=== PATIENT | male | born 1945 | race Caucasian/White ===

== ENCOUNTER 2017-02-08 01:57 | Emergency (ER) | payer MEDICARE ==
--- NOTE | 2017-02-08 02:10 | ER Document Report ---
ED Respiratory Problem - General Chief Complaint: Shortness Of Breath Stated Complaint: DIFFICULTY BREATHING Time Seen by Provider: 02/08/17 02:03 Notes: The patient is a 71-year-old male, past medical history ESRD (MWF, due this morning), A fib, presents by EMS with several hours of increased shortness of breath. He is coughing up white sputum and says this feels similar to when he had pneumonia. EMS arrived and his oxygen was 75% on room air. He was placed on CPAP and nitro paste was placed by EMS with improvement of his oxygenation. Patient denies chest pain, leg swelling, nausea, vomiting, back pain, fevers, headache, numbness or tingling. TRAVEL OUTSIDE OF THE [place] IN LAST 30 DAYS: No - Related Data Allergies/Adverse Reactions: warfarin Allergy (Verified 02/08/17 04:07) Past Medical History - General Information source: Patient - Social History Smoking Status: Unknown if Ever Smoked Family History: Reviewed & Not Pertinent - Past Medical History Cardiac Medical History: Reports: Hx Atrial Fibrillation, Hx Hypercholesterolemia, Hx Hypertension Denies: Hx Heart Attack Pulmonary Medical History: Denies: Hx Asthma Neurological Medical History: Denies: Hx Cerebrovascular Accident, Hx Seizures Renal/ Medical History: Reports: Hx End Stage Renal Disease, Hx Hemodialysis GI Medical History: Reports: Hx Gastroesophageal Reflux Disease. Denies: Hx Hepatitis, Hx Hiatal Hernia, Hx Ulcer Skin Medical History: Reports Hx Cellulitis - catheter site. Infectious Medical History: Denies: Hx Hepatitis Past Surgical History: Reports: Hx Abdominal Surgery - AAA repair, Hx Kidney ( Renal Surgery) - home dialysis 4 x week every other day, Hx Testicular Surgery, Hx Vascular Surgery - Arteriovenous shunt surgery. Denies: Hx Open Heart Surgery, Hx Pacemaker - Immunizations Hx Diphtheria, Pertussis, Tetanus Vaccination: Yes Hx Pneumococcal Vaccination: 02/08/09 Review of Systems - Review of Systems Notes: REVIEW OF SYSTEMS: CONSTITUTIONAL: -fevers, -chills EENT: -eye pain, -difficulty swallowing, -nasal congestion CARDIOVASCULAR: -chest pain, -syncope. RESPIRATORY: +cough, +SOB GASTROINTESTINAL: -abdominal pain, -nausea, -vomiting, -diarrhea GENITOURINARY: -dysuria, -hematuria MUSCULOSKELETAL: -back pain, -neck pain SKIN: -rash or skin lesions. HEMATOLOGIC: -easy bruising or bleeding. LYMPHATIC: -swollen, enlarged glands. NEUROLOGICAL: -altered mental status or loss of consciousness, -headache, - neurologic symptoms PSYCHIATRIC: -anxiety, -depression. ALL OTHER SYSTEMS REVIEWED AND NEGATIVE. Physical Exam - Vital signs Vitals: Temp Resp BP 97.8 F 25 H 148/53 H 02/08/17 02:02 02/08/17 02:02 02/08/17 02:02 - Notes Notes: PHYSICAL EXAMINATION: GENERAL: Mild respiratory distress. HEAD: Atraumatic, normocephalic. EYES: Pupils equal round and reactive to light, extraocular movements intact, sclera anicteric, conjunctiva are normal. ENT: nares patent, oropharynx clear without exudates. Moist mucous membranes. NECK: Normal range of motion, supple without lymphadenopathy LUNGS: Crackles and rales in B/L lung [place]. HEART: Tachycardia, regular rhythm. ABDOMEN: Soft, nontender, normoactive bowel sounds. No guarding, no rebound. No masses appreciated. EXTREMITIES: 1+ pitting edema in B/L legs. LUE dialysis fistula. Normal range of motion, no pitting or edema. No cyanosis. NEUROLOGICAL: Cranial nerves grossly intact. Normal speech, normal gait. Normal sensory and motor exams. PSYCH: Normal mood, normal affect. SKIN: Dry skin. Course - Re-evaluation Re-evalutation: Patient seen immediately on arrival and switched from CPAP to BiPAP due to hypoxia on room air to 75% at home. Patient's respiratory status and oxygenation greatly improved with BiPAP. His chest x-ray shows a right lower lobe opacity, which may be loculated pleural effusion, infiltrate or pleural density. CT is recommended for further delineation. Broad-spectrum antibiotics started due to possibility of a pneumonia with productive cough, opacity on CXR and hypoxia. However, pneumonia is less likely without a fever or leukocytosis at this time. Patient requires admission for further evaluation and monitoring of his hypoxia and respiratory status. He is due for dialysis this morning, however no entry level staff accountant or dialysis capacity at [facility] until 02/15/2017 (confirmed with diesel crane operator). Potassium is 5.7, but no hyperkalemic EKG changes. Patient said that he has been seen at [facility] multiple times and is requesting transfer. 02/08/17 03:38 Placed call to [facility] and awaiting callback. 02/08/17 03:[address] Babak Arrieta and he has accepted patient. 02/08/17 05:34 Transport in ED. Patient reevaluated and resting comfortably on BiPAP. He is stable for transport. - Vital Signs Vital signs: Temp Pulse Resp BP Pulse Ox 96.9 F L 21 H 135/60 H 100 02/08/17 05:31 02/08/17 05:31 02/08/17 05:31 02/08/17 05:31 - Laboratory Result Diagrams: 02/08/17 02:38 02/08/17 02:38 Laboratory results interpreted by me: 02/08/17 02/08/17 02/08/17 02:38 02:38 02:38 RBC 2.90 L Hgb 10.0 L Hct 31.2 L MCV 108 H MCH 34.6 H RDW 18.0 H Seg Neutrophils % 85.8 H Lymphocytes % 6.2 L Absolute Lymphocytes 0.4 L VBG pH VBG pCO2 Potassium 5.7 H BUN 82 H Creatinine 7.65 H Est GFR ( Amer) 9 L Est GFR (Non-Af Amer) 7 L Glucose 129 H Direct Bilirubin 0.6 H Alkaline Phosphatase 550 H NT-Pro-B Natriuret Pep 60021 H Total Protein 6.1 L Albumin 3.2 L 02/08/17 02:38 RBC Hgb Hct MCV MCH RDW Seg Neutrophils % Lymphocytes % Absolute Lymphocytes VBG pH 7.19 L* VBG pCO2 78.4 H* Potassium BUN Creatinine Est GFR ( Amer) Est GFR (Non-Af Amer) Glucose Direct Bilirubin Alkaline Phosphatase NT-Pro-B Natriuret Pep Total Protein Albumin - Diagnostic Test Radiology reviewed: Image reviewed, Reports reviewed Radiology results interpreted by me: CXR: Lobulated right costophrenic angle pleural-based opacity. This may represent a loculated pleural effusion with right basilar consolidation. Correlation with follow-up CT of the chest recommended as pleural-based mass could produce a similar appearance. - EKG Interpretation by Me EKG shows normal: Sinus rhythm, [place], Intervals Rate: Tachycardia Additional EKG results interpreted by me: No STEMI Critical Care Note - Critical Care Note Total time excluding time spent on procedures (mins): 35 Discharge - Discharge Clinical Impression: Pleural effusion, Possible pneumonia Respiratory failure with hypoxia and hypercapnia Qualifiers: Chronicity: acute Qualified Code(s): J96.01 - Acute respiratory failure with hypoxia Condition: Stable Disposition: [facility] Referrals: IVORY KNUTSON PA-C [Primary Care Provider] - Follow up as needed
[2017-02-08 03:06] LABS: ABSOLUTE EOSINOPHILS # (AUTO) 0.1 10^3/uL (0.0-0.6); ABSOLUTE LYMPHOCYTES (AUTO) 0.4 10^3/uL (0.5-4.7); ABSOLUTE MONOCYTES (AUTO) 0.4 10^3/uL (0.1-1.4); BASOPHILS % (AUTO) 0.6 % (0-2); EOSINOPHILS % (AUTO) 1.1 % (0-6); HEMATOCRIT 31.2 % (37.9-51.0); LYMPHOCYTES % (AUTO) 6.2 % (13-45); MEAN CORPUSCULAR HEMOGLOBIN 34.6 pg (27.0-33.4); MEAN CORPUSCULAR HGB CONC 32.2 g/dL (32.0-36.0); MEAN CORPUSCULAR VOLUME 108 fl (80-97); MONOCYTES % (AUTO) 6.3 % (3-13); PLATELET COUNT 176 10^3/uL (150-450); SEGMENTED NEUTROPHILS % (AUTO) 85.8 % (42-78); TOTAL CELLS COUNTED % (AUTO) 100 %
[2017-02-08 03:07] LABS: INTERNATIONAL RATION (INR) 1.09; PROTHROMBIN TIME 14.9 SEC (11.4-15.4)
[2017-02-08 03:08] LABS: PARTIAL THROMBOPLASTIN TIME 34.3 SEC (23.5-35.8)
[2017-02-08 03:16] LABS: ALANINE AMINOTRANSFERASE 72 U/L (21-72); ALBUMIN 3.2 g/dL (3.5-5.0); ALKALINE PHOSPHATASE 550 U/L (38-126); ANION GAP 14 (5-19); ASPARTATE AMINO TRANSFERASE 49 U/L (17-59); BILIRUBIN,DIRECT 0.6 mg/dL (0.0-0.4); BILIRUBIN,TOTAL 0.6 mg/dL (0.2-1.3); BLOOD UREA NITROGEN 82 mg/dL (7-20); CALCIUM 8.7 mg/dL (8.4-10.2); CARBON DIOXIDE 28 mmol/L (22-30); CHLORIDE 101 mmol/L (98-107); CREATINE KINASE 55 U/L (55-170); GLUCOSE 129 mg/dL (75-110); LIPASE 227.9 U/L (23-300); POTASSIUM 5.7 mmol/L (3.6-5.0); SODIUM 143.1 mmol/L (137-145); TOTAL PROTEIN 6.1 g/dL (6.3-8.2)
--- NOTE | 2017-02-08 03:21 | RADIOLOGY REPORT (SQ) ---
EXAM DESCRIPTION: CHEST SINGLE VIEW CLINICAL HISTORY: SOB COMPARISON: 09/23/2015 FINDINGS: Single frontal view of the chest. Cardia megaly. Atherosclerotic calcification of the aortic arch. Leads overlie the chest. Lobulated right basilar possibly pleural-based opacity with airspace opacities in the right lung base. No pneumothorax. No displaced rib fractures identified. Upper abdominal soft tissues are unremarkable. IMPRESSION: 1. Lobulated right costophrenic angle pleural-based opacity. This may represent a loculated pleural effusion with right basilar consolidation. Correlation with follow-up CT of the chest recommended as pleural-based mass could produce a similar appearance.
[2017-02-08 03:26] LABS: TROPONIN I 0.025 ng/mL
[2017-02-08] MEDS ORDERED: AZITHROMYCIN INJ 500 MG VIAL IV ONE (03:31)
[2017-02-08] MEDS ORDERED: CEFTRIAXONE 1 GM/D5W RTU 1 GM/50 ML RTUPB IV ONE (03:31)
[2017-02-08 03:34] LABS: VENOUS BLOOD BASE EXCESS -0.6 mmol/L; VENOUS BLOOD HCO3 29.3 mmol/L (20-32)
[2017-02-08 03:36] LABS: VENOUS BLOOD PCO2 78.4 mmHg (35-63)
[2017-02-08 03:37] LABS: VENOUS BLOOD PH 7.19 (7.30-7.42)
[2017-02-08] MEDS ORDERED: VANCOMYCIN HCL INJ 1000 MG VIAL IV ONE (03:37)
[2017-02-08] MEDS ORDERED: PIPERACILLIN/TAZOBACTAM 3.375 GM VIAL IV ONE (03:37)
[2017-02-08 05:34] VITALS: BP 135/60
--- NOTE | 2017-02-09 09:25 | EKG REPORT ---
SEVERITY:- ABNORMAL ECG - SINUS TACHYCARDIA PROBABLE LEFT ATRIAL ABNORMALITY NONSPECIFIC INTRAVENTRICULAR CONDUCTION DELAY LOW VOLTAGE IN FRONTAL LEADS BORDERLINE R WAVE PROGRESSION, ANTERIOR LEADS MINIMAL ST DEPRESSION, ANTEROLATERAL LEADS : Confirmed by: Yan Turcios 09-Feb-2017 09:23:17
== END 2017-02-08 05:35 | disposition short-term general hospital (02) ==
LOC: ER 01:57
DX: J96.01 Acute respiratory failure with hypoxia (principal); I12.0 Hypertensive chronic kidney disease with stage 5 chronic kidney disease or end stage renal disease; N18.6 End stage renal disease; Z99.2 Dependence on renal dialysis; J90 Pleural effusion, not elsewhere classified; Z87.01 Personal history of pneumonia (recurrent); Z88.8 Allergy status to other drugs, medicaments and biological substances
CPT/HCPCS: 93005; 99291; 96365; 96368; 36415; 87040; 82550; 83690; 85025; 85610; 85730; 80053; 84484; 82803; 83605; 83880; 71045; 93010; 94660; J3370; J2543

== ENCOUNTER 2017-03-06 09:23 | Emergency (ER) | payer MEDICARE ==
[2017-03-06] MEDS ORDERED: DIGOXIN INJ 0.5 MG/2 ML AMPULE IV ONE ×3 (09:26→12:23)
[2017-03-06] MEDS ORDERED: PHENYLEPHRINE HCL INJ/PF 10 MG/1 ML SDV ONE ×3 (09:29→13:41)
--- NOTE | 2017-03-06 09:43 | ER Document Report ---
ED General - General Stated Complaint: SHORTNESS OF BREATH Time Seen by Provider: 03/06/17 09:26 Notes: Patient brought in by EMS with respiratory distress and low blood pressure. Called to EMS this morning was for difficulty breathing, shortness of breath, chest tightness. EMS describes finding the patient in atrial fibrillation with a heart rate of about 180 and a blood pressure of 60/40. EMS has started a bag of saline on the patient via interosseous access in his leg. He has a history of atrial fibrillation. Patient received Cardizem 20 mg bolus by EMS and was attempted cardioversion at 50 J and then 100 J, but no change in the patient's rhythm. Patient says is no longer having chest pain or tightness, but still feels some shortness of breath. Patient is a dialysis patient, Wednesday, Wednesday, and Wednesday. Further information obtained from sister when she arrived. She says that he was hospitalized in [place] about a month ago with pneumonia and CHF fluid overload. During his hospitalization, he had dialysis. He missed dialysis this past Wednesday because his graft had clotted and he was sent to [place] for a procedure to open the graft back up. He did get his dialysis Wednesday and Wednesday, yesterday. Spoke with [facility] physician, Dr. Colon, who accepted the patient for transfer. TRAVEL OUTSIDE OF THE [place] IN LAST 30 DAYS: No - Related Data Allergies/Adverse Reactions: warfarin Allergy (Verified 02/08/17 04:07) Past Medical History - Social History Smoking Status: Former Smoker - Patient says he stopped smoking last week. Cigarette use (# per day): No Family History: Reviewed & Not Pertinent - Past Medical History Cardiac Medical History: Reports: Hx Atrial Fibrillation, Hx Hypercholesterolemia, Hx Hypertension Renal/ Medical History: Reports: Hx End Stage Renal Disease, Hx Hemodialysis - Wednesday GI Medical History: Reports: Hx Diverticulitis - Required surgery on a colostomy., Hx Gastroesophageal Reflux Disease Skin Medical History: Reports Hx Cellulitis - catheter site. Past Surgical History: Reports: Hx Abdominal Surgery - AAA repair, Hx Colostomy - For diverticulitis, Hx Kidney (Renal Surgery) - home dialysis 4 x week every other day, Hx Testicular Surgery, Hx Vascular Surgery - Arteriovenous shunt surgery. Denies: Hx Open Heart Surgery, Hx Pacemaker - Immunizations Hx Diphtheria, Pertussis, Tetanus Vaccination: Yes Hx Pneumococcal Vaccination: 02/08/09 Review of Systems - Review of Systems Notes: REVIEW OF SYSTEMS: CONSTITUTIONAL : Denies fever. EENT: Denies eye, ear, nose or mouth or throat pain or other symptoms. CARDIOVASCULAR: Denies chest pain. RESPIRATORY: See HPI. GASTROINTESTINAL: Denies abdominal pain or nausea, vomiting, or diarrhea. Colostomy left lower quadrant. GENITOURINARY: Denies difficulty or painful urinating, urinary frequency, blood in urine. MUSCULOSKELETAL: Denies back or neck pain. Denies joint pain or swelling. SKIN: Denies rash or skin lesions. NEUROLOGICAL: Denies LOC or altered mental status. Denies headache. Denies sensory loss or motor deficits. ALL OTHER SYSTEMS REVIEWED AND NEGATIVE. Physical Exam - Vital signs Vitals: Resp 41 H 03/06/17 09:25 Interpretation: Hypotensive, Tachycardic, Hypoxic - On room air, Tachypneic, Other - Irregular rhythm - Notes Notes: PHYSICAL EXAMINATION: GENERAL: Chronically ill appearing. Grunting from discomfort. See vital signs. Hypotensive, tachycardia, irregular heart rate, hypoxia on room air. HEAD: Atraumatic, normocephalic. EYES: Pupils equal round and reactive to light, extraocular movements intact. ENT: oropharynx clear without exudates. Moist mucous membranes. NECK: Complains of pain in the posterior aspect of the neck to touch or movement. LUNGS: Decreased breath sounds bilaterally. HEART: Irregular tachycardia at about 150/min. ABDOMEN: Soft, nontender. No guarding or rebound. No masses. Colostomy in the left lower quadrant. BACK: No tenderness throughout entire back. EXTREMITIES: Normal range of motion without pain. No edema. Interosseous access in left lower leg. Feet are pink and warm. NEUROLOGICAL: Normal speech. Normal sensory, motor, and reflex exams. Awake, alert, and oriented x3. Cranial nerves normal. PSYCH: Normal mood, normal affect. May be depressed. SKIN: Warm, dry, no rashes. Skin tear of the right arm from where patient fell this morning. Course - Re-evaluation Re-evalutation: 03/06/17 10:16 Patient was initially given Lanoxin 0.25 mg IV. He was started on a phenylephrine drip at 40 mcg/min. With nasal O2 going, patient's O2 sat is in the mid 90s. Heart rate about 145 now and appears to be irregular. Blood pressure is 110 systolic. 03/06/17 11:16 Spoke with the hospitalist about admitting the patient and he said that we could not admit him without having nephrology backup. I called to [facility] in [place] about transferring the patient and they do not have any ICU beds. Patient was placed on the list there. I have called and asked to speak to a physician to transfer the patient to [facility] animal awaiting a call back from them. Patient seems to be improving gradually and now has a blood pressure 100/61 with a heart rate of 122. CBC showed 26% bands. His lactic acid level is 9. Patient does not make any urine. Chest x-ray shows right basilar effusion versus atelectasis, possible pneumonia. Patient has been started on Rocephin IV. Spoke with Kameron Johnston, who has taken care of this patient several years in the past. He is not secondary english teacher today, but I wanted to know if patient could be taking care of here and Dr. Johnston felt that the patient could be taken care of here, but he is not available to see this patient and is not secondary english teacher for the ED this weekend and would not be able to see this patient until Wednesday. 03/06/17 12:25 Patient's heart rate is declined to about 120 and seems to be stabilizing there. Family member say patient's heart rate normally is about 120, although I am not able to verify that. Blood pressure remains in the 90s systolic area. The patient has had a liter and a half of saline. I am going to give him another half a liter. He is on the Beto-Synephrine drip at about 150 mcg/min. I am hesitant to push any more fluids because I do not want overload the patient and not be able to dialyze it off if I need to. I have heard from [facility] and they do say they have a bed that they can accept the patient for transfer there. Even though Dr. Johnston that he thought the patient could be admitted here, he would not be able to see the patient until Wednesday. The hospitalist does not feel safe and keeping the patient here and managing his fluid input without the capability of dialysis if needed. I am going to start a slow drip of Levophed at 8 mcg/min. Patient is also getting a third dose of Lanoxin IV. Helicopter transport is here for the patient. 03/06/17 13:40 - Vital Signs Vital signs: Temp Pulse Resp BP Pulse Ox 32 H 98/51 L 95 03/06/17 13:26 03/06/17 13:26 03/06/17 13:26 - Laboratory Result Diagrams: 03/06/17 09:30 03/06/17 09:30 Laboratory results interpreted by me: 03/06/17 03/06/17 03/06/17 09:30 09:30 09:30 RBC 2.46 L Hgb 8.7 L Hct 26.9 L MCV 109 H MCH 35.4 H RDW 19.0 H Band Neutrophils % 26 H Lymphocytes % (Manual) 7 L Metamyelocytes % 1 H Carbon Dioxide 20 L BUN 47 H Creatinine 4.25 H Est GFR ( Amer) 17 L Est GFR (Non-Af Amer) 14 L Lactic Acid Direct Bilirubin 0.7 H AST 121 H ALT 107 H Alkaline Phosphatase 387 H Creatine Kinase 46 L NT-Pro-B Natriuret Pep 31032 H Total Protein 5.2 L Albumin 2.5 L 03/06/17 10:28 RBC Hgb Hct MCV MCH RDW Band Neutrophils % Lymphocytes % (Manual) Metamyelocytes % Carbon Dioxide BUN Creatinine Est GFR ( Amer) Est GFR (Non-Af Amer) Lactic Acid 9.1 H Direct Bilirubin AST ALT Alkaline Phosphatase Creatine Kinase NT-Pro-B Natriuret Pep Total Protein Albumin Critical Care Note - Critical Care Note Total time excluding time spent on procedures (mins): 60 Discharge - Discharge Clinical Impression: Atrial fibrillation with rapid ventricular response, Pneumonia, Sepsis, Hypotension Condition: Serious Disposition: [facility] Referrals: IVORY KNUTSON PA-C [Primary Care Provider] - Follow up as needed
[2017-03-06 09:47] LABS: HEMATOCRIT 26.9 % (37.9-51.0); HEMOGLOBIN 8.7 g/dL (13.5-17.0); MEAN CORPUSCULAR HEMOGLOBIN 35.4 pg (27.0-33.4); MEAN CORPUSCULAR HGB CONC 32.3 g/dL (32.0-36.0); MEAN CORPUSCULAR VOLUME 109 fl (80-97); PLATELET COUNT 263 10^3/uL (150-450); RED BLOOD COUNT 2.46 10^6/uL (4.35-5.55); WHITE BLOOD COUNT 7.1 10^3/uL (4.0-10.5)
[2017-03-06 09:48] LABS: INTERNATIONAL RATION (INR) 1.12; PROTHROMBIN TIME 15.1 SEC (11.4-15.4)
[2017-03-06] MEDS ORDERED: OXYCODONE-ACETAMINOPHEN 5-325 MG TABLET PO ONE ×2 (09:49→10:33)
--- NOTE | 2017-03-06 10:01 | RADIOLOGY REPORT (SQ) ---
EXAM DESCRIPTION: CHEST SINGLE VIEW COMPLETED DATE/TIME: 03/06/2017 9:41 am REASON FOR STUDY: Shortness of breath. COMPARISON: Chest x-ray 02/08/2017. EXAM PARAMETERS: NUMBER OF VIEWS: One view. TECHNIQUE: Single frontal radiographic view of the chest acquired. RADIATION DOSE: NA LIMITATIONS: There is motion artifact. Suboptimal patient positioning. Superimposed pacemaker pads. FINDINGS: LUNGS AND PLEURA: The patient is rotated. There is a moderate right pleural effusion with right basilar airspace opacity. No pneumothorax. MEDIASTINUM AND HILAR STRUCTURES: There is right perihilar airspace opacity. HEART AND VASCULAR STRUCTURES: Heart normal in size. No overt vascular congestion. BONES: No acute findings. HARDWARE: Bilateral pacemaker pads are noted. IMPRESSION: Moderate right pleural effusion and right basilar airspace opacity, may represent atelec tasis or pneumonia. Right perihilar airspace opacity, may be secondary to adenopathy. CT thorax can help in better evaluation. TECHNICAL DOCUMENTATION: JOB ID: [id number] 2010 [employer]- All Rights Reserved
[2017-03-06 10:03] LABS: ALANINE AMINOTRANSFERASE 107 U/L (21-72); ALBUMIN 2.5 g/dL (3.5-5.0); ALKALINE PHOSPHATASE 387 U/L (38-126); ANION GAP 16 (5-19); ASPARTATE AMINO TRANSFERASE 121 U/L (17-59); BILIRUBIN,DIRECT 0.7 mg/dL (0.0-0.4); BILIRUBIN,TOTAL 0.9 mg/dL (0.2-1.3); BLOOD UREA NITROGEN 47 mg/dL (7-20); CALCIUM 8.4 mg/dL (8.4-10.2); CARBON DIOXIDE 20 mmol/L (22-30); CHLORIDE 104 mmol/L (98-107); CREATINE KINASE 46 U/L (55-170); GLUCOSE 79 mg/dL (75-110); SODIUM 139.9 mmol/L (137-145); TOTAL PROTEIN 5.2 g/dL (6.3-8.2)
[2017-03-06] MEDS: DEXTROSE 5%-WATER 250 ML with PHENYLEPHRINE HCL 40 MG IV PRN ×4 (10:12→13:43)
[2017-03-06 10:13] LABS: CREATINE KINASE MB 0.88 ng/mL (<4.55)
[2017-03-06 10:14] LABS: ABSOLUTE LYMPHOCYTES# (MANUAL) 0.5 10^3/uL (0.5-4.7); ABSOLUTE MONOCYTES # (MANUAL) 0.2 10^3/uL (0.1-1.4); ABSOLUTE NEUTROPHILS# (MANUAL) 6.3 10^3/uL (1.7-8.2); ANISOCYTOSIS 2+; BAND NEUTROPHILS % (MANUAL) 26 % (3-5); BASOPHILS % (MANUAL) 1 % (0-2); EOSINOPHILS % (MANUAL) 0 % (0-6); HYPOCHROMASIA SLIGHT; LYMPHOCYTES % (MANUAL) 7 % (13-45); METAMYELOCYTES % (MANUAL) 1 % (0); MONOCYTES % (MANUAL) 3 % (3-13); NUCLEATED RED BLOOD CELLS 1 /100 WBC (0); OVALOCYTES 1+; PLATELET COMMENT ADEQUATE; POIKILOCYTOSIS 1+; POLYCHROMASIA SLIGHT; SEGMENTED NEUTROPHILS % (MAN) 62 % (42-78); TOTAL CELLS COUNTED 100; TOXIC GRANULATION 1+; TOXIC VACUOLATION PRESENT; TROPONIN I 0.063 ng/mL
[2017-03-06] MEDS ORDERED: CEFTRIAXONE 1 GM/D5W RTU 1 GM/50 ML RTUPB IV ONE (10:21)
[2017-03-06] MEDS ORDERED: CEFTRIAXONE SODIUM 1,000 MG in NORMAL SALINE 50 ML IV ONE (11:30)
[2017-03-06] MEDS ORDERED: DEXTROSE 5%-WATER 250 ML with NOREPINEPHRINE BITARTRATE 4 MG IV PRN ×2 (12:30)
[2017-03-06] MEDS ORDERED: NOREPINEPHRINE BITARTRATE INJ/PF 4 MG/4 ML SDV IV ONE (12:33)
[2017-03-06 13:09] LABS: A TYPE INFLUENZA AG NEGATIVE (NEGATIVE); B INFLUENZA AG NEGATIVE (NEGATIVE)
[2017-03-06 13:52] VITALS: BP 98/51
--- NOTE | 2017-03-07 11:53 | EKG REPORT ---
SEVERITY:- ABNORMAL ECG - SUPRAVENTRICULAR TACHYCARDIA LOW VOLTAGE IN FRONTAL LEADS REPOLARIZATION ABNORMALITY, PROB RATE RELATED : Confirmed by: Prachi Roberts MD 07-Mar-2017 11:52:32
== END 2017-03-06 13:51 | disposition short-term general hospital (02) ==
LOC: ER 09:23
DX: A41.9 Sepsis, unspecified organism (principal); J18.9 Pneumonia, unspecified organism; I48.91 Unspecified atrial fibrillation; I95.9 Hypotension, unspecified; R06.02 Shortness of breath; I12.0 Hypertensive chronic kidney disease with stage 5 chronic kidney disease or end stage renal disease; N18.6 End stage renal disease; Z99.2 Dependence on renal dialysis; S41.111A Laceration without foreign body of right upper arm, initial encounter; W19.XXXA Unspecified fall, initial encounter; Z98.890 Other specified postprocedural states; Z88.8 Allergy status to other drugs, medicaments and biological substances; Z87.891 Personal history of nicotine dependence
CPT/HCPCS: 93005; 96376; 99291; 96375; 96365; 36415; 87040; 82553; 82550; 85025; 85610; 87077; 80053; 84484; 83605; 87804; 83880; 71045; 93010; J1160; J3490; A9270; J2370; J0696; J7060; 87186